=== PATIENT | male | born 1945 | race Caucasian/White ===

== ENCOUNTER → 2018-01-28 | Outpatient (CLI) | payer MEDICARE, OTHER ==
[~2018-01-28] MED LIST: REGADENOSON 0.4 MG/5 ML SYRINGE ONE
== END | disposition home or self-care (01) ==
LOC: RAD 07:31
PROVIDERS: ATTEND Internal Medicine Cardiovascular Disease
DX: I34.8 Other nonrheumatic mitral valve disorders (principal); I25.10 Atherosclerotic heart disease of native coronary artery without angina pectoris; I10 Essential (primary) hypertension; I25.2 Old myocardial infarction; M79.604 Pain in right leg; R60.0 Localized edema
CPT/HCPCS: 78452; 93017; 93306; 93971; A9502; J2785

== ENCOUNTER → 2018-07-13 | Outpatient (CLI) | payer OTHER | END | disposition home or self-care (01) | LOC: CARD 15:51 | PROVIDERS: ATTEND Nurse Practitioner Family | DX: R06.02 Shortness of breath (principal) | CPT/HCPCS: 94060; 94726; 94729 ==